=== PATIENT | male | born 1990 | race American Indian/Alaskan Native ===

== ENCOUNTER 2018-10-22 08:01 | Day surgery (SDC) | payer BC ==
[~2018-10-22 08:01] MED LIST: DIPRIVAN 10 MG/ML IV ONE; SUBLIMAZE ONE
[2018-10-22] MEDS ORDERED: SUBLIMAZE IV PRN (08:32)
[2018-10-22] MEDS ORDERED: TORADOL IV PRN (08:32)
[2018-10-22] MEDS ORDERED: DEMEROL IV PRN (08:32)
[2018-10-22] MEDS ORDERED: TYLENOL PO PRN (08:32)
[2018-10-22] MEDS ORDERED: DILAUDID IV PRN (08:32)
[2018-10-22] MEDS ORDERED: ZOFRAN IV PRN (08:32)
[2018-10-22] MEDS ORDERED: LACTATED RINGERS 1,000 ML ONE (08:52)
--- NOTE | 2018-10-22 08:53 | Anesthesia Consultation ---
Anesthesia Consult and Med Hx - Airway Anesthetic Teeth Evaluation: Good ROM Head & Neck: Adequate Mental/Hyoid Distance: Adequate Mallampati Class: Class II Intubation Access Assessment: Good - Pulmonary Exam CTA: Yes - Cardiac Exam Cardiac Exam: RRR - Pre-Operative Health Status ASA Pre-Surgery Classification: ASA2 Proposed Anesthetic Plan: General - Pulmonary Hx Smoking: Yes (STOPPED X 1 YRS ( 1 /2 PPD)) Hx Sleep Apnea: No (FELICIA PRE SCREEN LOW RISK.) - Cardiovascular System Hx Hypertension: No - Other Systems Hx Cancer: No
--- NOTE | 2018-10-22 08:58 | Anesthesia Consultation ---
Anesthesia Consult and Med Hx Date of service: 10/22/18 - Airway Anesthetic Teeth Evaluation: Good ROM Head & Neck: Adequate Mental/Hyoid Distance: Adequate Mallampati Class: Class II Intubation Access Assessment: Good - Pulmonary Exam CTA: Yes - Cardiac Exam Cardiac Exam: RRR - Pre-Operative Health Status ASA Pre-Surgery Classification: ASA3 Proposed Anesthetic Plan: General - Pulmonary Hx Smoking: Yes (STOPPED X 1 YRS ( 1 /2 PPD)) Hx Sleep Apnea: No (FELICIA PRE SCREEN LOW RISK.) - Cardiovascular System Hx Hypertension: No - Other Systems Hx Cancer: No
[2018-10-22] MEDS ORDERED: LACTATED RINGERS 1,000 ML IV SCH (09:00)
--- NOTE | 2018-10-22 09:01 | Anesthesia Day of Surgery ---
Anesthesia Day of Surgery - Day of Surgery Patient Examined: Yes Patient H&P Reviewed: Yes Patient is NPO: Yes Beta Blockers: No Cardiac Clearance: No Pulmonary Clearance: No
[2018-10-22] MEDS: VERSED IV NR ×2 (09:08→09:32)
[2018-10-22] MEDS ORDERED: WATER FOR IRRIG STERILE IR ONE ×2 (10:28→10:29)
[2018-10-22] MEDS ORDERED: ANCEF/STERILE WATER 2 GM/20 ML IV NR (10:30)
[2018-10-22] MEDS ORDERED: DIPRIVAN 10 MG/ML IV ONE (10:55)
[2018-10-22] MEDS ORDERED: ZOFRAN ONE (11:05)
[2018-10-22] MEDS ORDERED: NEO SYNEPHRINE/NS Syringe(OR USE) IV ONE (11:05)
[2018-10-22] MEDS ORDERED: DECADRON ONE (11:05)
[2018-10-22] MEDS ORDERED: XYLOCAINE CARDIAC IV ONE (11:05)
--- NOTE | 2018-10-22 11:25 | Post Operative Note ---
Date of procedure: 10/22/18 Pre-op diagnosis: "prostatitis" Post-op diagnosis: same Findings: normal Procedure: cysto rpgs Anesthesia: GETA Surgeon: WILMER FAUSTIN Estimated blood loss: none Pathology: none Condition: stable Disposition: PACU
--- NOTE | 2018-10-22 11:26 | Discharge Summary ---
Short Stay Discharge Plan Activity: no restrictions, other Weight Bearing Status: Full Weight Bearing Diet: regular Special Instructions: other (inc fluids ) Follow up with: PRIMARY CARE, [Primary Care Provider] - 7 Days WILMER FAUSTIN MD [Staff Physician] - 14 Days
--- NOTE | 2018-10-22 12:33 | Operative Report ---
INDICATIONS: The patient is a 27-year-old gentleman who has been told for quite some time he has urinary and prostate issues. His examination was unremarkable. He has been treated with antibiotics. He had some sort of procedure years ago. 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 He now presents for cystoscopy. He is worried about prostate issues. DESCRIPTION OF PROCEDURE: The patient was brought to the operating room and placed on the operating table. Following induction of anesthesia, placed in lithotomy position, and prepped and draped in usual sterile fashion. Cystourethroscopy showed normal urethra, normal open bladder neck. Prostatic urethra was not long, measured approximately 2.5-3 cm. Bladder was not trabeculated. There were no bladder lesions. Retrograde showed no hydronephrosis, no dilatation, good filling and drainage. The patient tolerated the procedure well. No significant complication. He was brought to recovery in stable condition. JOB# [id number] LACI/KORI
[2018-10-22 12:57] VITALS: BP 105/63
--- NOTE | 2018-10-22 13:19 | Fluoroscopy Report ---
FLUOROSCOPY RETROGRADE UROGRAPHY: HISTORY: Enlarged prostate, urinary retention. FINDINGS: Fluoroscopy was provided by radiology during retrograde urography by the urologist. 5 fluoroscopic images were captured. There is adequate filling of the ureters and intrarenal collecting systems with no filling defects or anatomic abnormalities identified. Please correlate with the procedural report if needed. IMPRESSION: Retrograde pyelograms within normal limits.
--- NOTE | 2018-10-22 18:07 | Post Anesthesia Evaluation ---
- Post Anesthesia Evaluation Patient Participated: Yes Airway Patent: Yes Stable Respiratory Function: Yes Nausea/Vomiting: No Temp > 96.8F: Yes Pain Manageable: Yes Adequeate Hydration: Yes Anesthesia Complications: No
== END 2018-10-22 13:30 | disposition home or self-care (01) ==
LOC: OR 08:01
PROVIDERS: ATTEND Urology
DX: N40.0 Benign prostatic hyperplasia without lower urinary tract symptoms (principal); N41.9 Inflammatory disease of prostate, unspecified; R33.9 Retention of urine, unspecified; Z79.899 Other long term (current) drug therapy; Z88.5 Allergy status to narcotic agent; Z87.891 Personal history of nicotine dependence; K21.9 Gastro-esophageal reflux disease without esophagitis; Z87.440 Personal history of urinary (tract) infections; F32.9 Major depressive disorder, single episode, unspecified; F41.9 Anxiety disorder, unspecified
CPT/HCPCS: 52005; 74420; A4217; C1758; C1769; J0690; J1100; J1885; J2001; J2250; J2370; J2405; J2704; J3010; J7120; Q9967

== ENCOUNTER 2019-09-24 15:41 | Emergency (ER) | payer BC ==
[2019-09-24 16:02] VITALS: BP 156/78
[2019-09-24] MEDS ORDERED: SODIUM CHLORIDE 0.9% 1000 ML 1,000 ML IV ONE (16:36)
--- NOTE | 2019-09-24 16:44 | Emergency Department Report ---
ED Psych HPI - General Chief Complaint: Neuro Symptoms/Deficit Stated Complaint: RT SIDE NUMB/TINGLE CANT MOVE Time Seen by Provider: 09/24/19 16:42 Source: patient Mode of arrival: Ambulatory - History of Present Illness Initial Comments: Patient is a 28-year-old male who comes to the emergency room tachypneic, diaphoretic and extremely anxious. In triage she looked to be in distress. On further exam it appears that the patient has an acute on chronic history of anxiety and panic attacks. Patient states that he had an anxiety attack on Monday and that today he called his doctor who told him that he should be seen in the emergency room. Patient is tachypneic and complaining of numbness of his fingers and toes. He states that his fingers are curling up. P atient has no facial droop no pronator drift on exam. Patient endorses occasional alcohol, daily cigarettes and marijuana use for his anxiety. He last had marijuana this morning. Patient lives with his . Patient denies any daily medications Patient states his last HIV test was last year and negative. Review of the EMR indicates that he at one time he was on antivirals prophylactically but he denies taking them at this time. Patient denies SI or HI. Patient denies auditory or visual hallucinations. Patient has no history of psychosis or schizophrenia. He is and his legal next of kin is his partner who is in the room with him. -: Gradual, days(s) Associated Psychiatric Symptoms: none History of same: Yes Improves With: none Worsens With: none Context: recent drug abuse Associated Symptoms: shortness of breath. denies: confusion, headache, nausea, vomiting, syncope, insomnia Treatments Prior to Arrival: none - Related Data Previous Rx's Medication Instructions Recorded Last Taken Type hydrOXYzine PAMOATE [Vistaril] 25 mg PO Q6HR PRN #10 capsule 09/24/19 Unknown Rx Allergies Allergy/AdvReac Type Severity Reaction Status Date / Time codeine Allergy Itching Verified 10/15/18 11:46 ED Review of Systems ROS: Stated complaint: RT SIDE NUMB/TINGLE CANT MOVE Other details as noted in HPI Comment: All other systems reviewed and negative ED Past Medical Hx - Past Medical History Previous Medical History?: Yes Hx Hypertension: No Hx GERD: Yes (PRN MEDS) Hx Psychiatric Treatment: Yes (ANXIETY) Hx HIV: No Additional medical history: Uriz's Palsy - Surgical History Past Surgical History?: Yes Additional Surgical History: T/A; HPV REMOVAL 2009 - Family History Family history: no significant - Social History Smoking Status: Current Every Day Smoker Substance Use Type: Alcohol, Marijuana (FOR ANXIETY AND NAUSEA; LAST THIS AM) - Medications Home Medications: Home Medications Medication Instructions Recorded Confirmed Last Taken Type hydrOXYzine PAMOATE [Vistaril] 25 mg PO Q6HR PRN #10 capsule 09/24/19 Unknown Rx ED Physical Exam - General Limitations: No Limitations General appearance: alert, anxious, other (DIAPHORETIC) - Head Head exam: Present: atraumatic, normocephalic - Eye Eye exam: Present: normal appearance, PERRL, EOMI - ENT ENT exam: Present: mucous membranes moist - Neck Neck exam: Present: normal inspection - Respiratory Respiratory exam: Present: normal lung sounds bilaterally. Absent: respiratory distress - Cardiovascular Cardiovascular Exam: Present: regular rate, normal rhythm, tachycardia. Absent: systolic murmur, diastolic murmur, rubs, gallop - GI/Abdominal GI/Abdominal exam: Present: soft, normal bowel sounds - Rectal Rectal exam: Present: deferred - Extremities Exam Extremities exam: Present: normal inspection - Back Exam Back exam: Present: normal inspection - Neurological Exam Neurological exam: Present: alert, oriented X3 - Psychiatric Psychiatric exam: Present: anxious - Skin Skin exam: Present: warm, intact, diaphoretic, pallor. Absent: rash ED Course Vital Signs 09/24/19 16:00 Temperature 97.5 F L Pulse Rate 92 H Respiratory 24 Rate Blood Pressure 156/78 O2 Sat by Pulse 100 Oximetry - Reevaluation(s) Reevaluation #1: 09/24/19 18:[address] MORALES WHEN CT READ AND NEG PT TO DC HOME WITH ANCHOR REFERRAL ED Medical Decision Making - Lab Data Result diagrams: 09/24/19 16:24 09/24/19 16:42 - EKG Data -: EKG Interpreted by Me EKG shows normal: sinus rhythm Rate: normal - EKG Data When compared to previous EKG there are: no significant change Interpretation: no acute changes - Radiology Data Radiology results: report reviewed, image reviewed - Medical Decision Making Labs 09/24/19 09/24/19 09/24/19 16:24 16:24 16:24 WBC RBC Hgb Hct MCV MCH MCHC RDW Plt Count Lymph % (Auto) Boyle % (Auto) Eos % (Auto) Baso % (Auto) Lymph # Boyle # Eos # Baso # Seg Neutrophils % Seg Neutrophils # Sodium 140 Potassium 3.5 L Chloride 103.4 Carbon Dioxide 20 L Anion Gap 20 BUN 11 Creatinine 0.8 Estimated GFR > 60 BUN/Creatinine Ratio 14 Glucose 115 H Calcium 9.9 Total Bilirubin AST ALT Alkaline Phosphatase Total Creatine Kinase Total Protein Albumin Albumin/Globulin Ratio Salicylates < 0.3 L Acetaminophen < 5.0 L Plasma/Serum Alcohol 09/24/19 09/24/19 09/24/19 16:24 16:24 16:42 WBC 8.3 RBC 4.90 Hgb 15.6 H Hct 45.4 MCV 93 MCH 32 MCHC 34 RDW 12.4 L Plt Count 287 Lymph % (Auto) 26.7 Boyle % (Auto) 5.1 Eos % (Auto) 0.4 Baso % (Auto) 1.1 Lymph # 2.2 Boyle # 0.4 Eos # 0.0 Baso # 0.1 Seg Neutrophils % 66.7 Seg Neutrophils # 5.5 Sodium 141 Potassium 3.5 L Chloride 103.8 Carbon Dioxide 19 L Anion Gap 22 BUN 11 Creatinine 0.8 Estimated GFR > 60 BUN/Creatinine Ratio 14 Glucose 117 H Calcium 9.8 Total Bilirubin 0.50 AST 16 ALT 20 Alkaline Phosphatase 74 Total Creatine Kinase 75 Total Protein 7.0 Albumin 4.9 Albumin/Globulin Ratio 2.3 Salicylates Acetaminophen Plasma/Serum Alcohol < 0.01 Vital Signs 09/24/19 16:00 Temperature 97.5 F L Pulse Rate 92 H Respiratory 24 Rate Blood Pressure 156/78 O2 Sat by Pulse 100 Oximetry PLAN 1. MEDICALLY CLEAR WITH LABS/UA/CT 2. MHE FOR RESOURCES FOR ANXIETY/PANIC DISORDER 1800 TREATED FOR HYPOKALEMIA WITH PO K LABS NOTED UA AND UDS NOTED CT HEAD READ PENDING TSH NORMAL PLAN 1829 CT - WHEN NEG ---DC HOME WITH RX FOR VISTARIL AND ANCHOR REFERRAL 1829 PT AND FAMILY UPDATED ON PLAN OF CARE PT CALM AT THIS TIME. - Differential Diagnosis PANIC ATTACK/HYPERTHYROID/IC PROCESS Critical care attestation.: If time is entered above; I have spent that time in minutes in the direct care of this critically ill patient, excluding procedure time. ED Disposition Clinical Impression: Panic attack, Hypokalemia Disposition: DC- TO HOME OR SELFCARE Is pt being admited?: No Does the pt Need Aspirin: No Condition: Stable Instructions: Hypokalemia (ED), Cannabis Abuse (ED), Anxiety (ED) Additional Instructions: AVOID ALCOHOL AND DRUGS FOLLOW UP WITH PCP AND ANCHOR- SEE ATTACHED FOR ASSISTANCE WITH ANXIETY USE VISTARIL IF NEEDED FOR ATTACKS LIKE TODAY DIET TOLERATED AVOID CAFFEINE WORK ON LIMITING STRESS Prescriptions: hydrOXYzine PAMOATE [Vistaril] 25 mg PO Q6HR PRN #10 capsule PRN Reason: Anxiety Referrals: HERRERA FAGANTEXARKANA MD [place]ING [Primary Care Provider] - 3-5 Days RASHMI WARE MD [Staff Physician] - 3-5 Days Time of Disposition: 17:56
[2019-09-24 16:52] LABS: Basophils # (Auto) 0.1 K/mm3 (0.0-0.1); Basophils % (Auto) 1.1 % (0.0-1.8); Eosinophils % (Auto) 0.4 % (0.0-4.3); Hematocrit 45.4 % (35.5-45.6); Hemoglobin 15.6 gm/dl (11.8-15.2); Lymphocytes # (Auto) 2.2 K/mm3 (1.2-5.4); Lymphocytes % (Auto) 26.7 % (13.4-35.0); Mean Corpuscular HGB Conc 34 % (32-34); Mean Corpuscular Volume 93 fl (84-94); Monocytes # (Auto) 0.4 K/mm3 (0.0-0.8); Monocytes % (Auto) 5.1 % (0.0-7.3); Platelet Count 287 K/mm3 (140-440); Red Cell Distribution Width 12.4 % (13.2-15.2)
[2019-09-24 17:03] LABS: BUN/Creatinine Ratio 14; Blood Urea Nitrogen 11 mg/dL (9-20); Calcium 9.9 mg/dL (8.4-10.2); Hemolysis Index 15
[2019-09-24] MEDS ORDERED: POTASSIUM CHLORIDE ER 20 MEQ TAB PO ONE (17:04)
[2019-09-24 17:07] LABS: Alanine Aminotransferase 20 units/L (7-56); Albumin 4.9 g/dL (3.9-5); BUN/Creatinine Ratio 14; Blood Urea Nitrogen 11 mg/dL (9-20); Calcium 9.8 mg/dL (8.4-10.2); Hemolysis Index 14
[2019-09-24 18:03] LABS: Bilirubin,Urine NEG (Negative); Blood,Urine NEG (Negative); Color,Urine Yellow (Yellow); Mucus,Urine FEW /HPF; Protein,Urine <15 mg/dL mg/dL (Negative); RBC,Urine < 1.0 /HPF (0.0-6.0); Urobilinogen,Urine < 2.0 mg/dL (<2.0); WBC,Urine < 1.0 /HPF (0.0-6.0)
[2019-09-24 18:05] LABS: Amphetamine Screen,Urine PRESUMPTIVE NEGATIVE; Benzodiazepines Screen,Urine PRESUMPTIVE NEGATIVE; Cocaine Screen,Urine PRESUMPTIVE NEGATIVE; Methadone Screen,Urine PRESUMPTIVE NEGATIVE; Opiate Screen,Urine PRESUMPTIVE NEGATIVE
[2019-09-24] MEDS ORDERED: hydrOXYzine PAMOATE 25 MG CAP PO ONE (18:11)
[2019-09-24 18:19] LABS: Cannabinoid Screen,Urine PRESUMPTIVE POSITIVE
--- NOTE | 2019-09-24 20:32 | Cat Scan Report ---
CT head/brain wo con INDICATION / CLINICAL INFORMATION: 28 years Male; AMS. TECHNIQUE: Routine CT head without contrast. All CT scans at this location are performed using CT dos e reduction for ALARA by means of automated exposure control. COMPARISON: None. FINDINGS: BRAIN / INTRACRANIAL CONTENTS: No acute hemorrhage, mass effect, midline shift, hydrocephalus, or acu te, large territorial infarct. No chronic infarct or atrophy appreciated. No significant white matter abnormality. CRANIOCERVICAL JUNCTION: No significant abnormality. ORBITS: No significant abnormality of visualized orbits. SINUSES / MASTOIDS: Mucous retention cyst/polyp seen in the right maxillary antrum. Partial opacifica tion of the mastoid seen on the right with small air-fluid level. ADDITIONAL FINDINGS: None. IMPRESSION: 1. No focal mass, hemorrhage, hydrocephalus, or acute, large territorial infarct. Signer Name: Arnie Whalen MD, III Signed: 09/24/2019 8:28 PM Workstation Name: [id number]
== END 2019-09-24 20:50 | disposition home or self-care (01) ==
LOC: ED 15:41
DX: F41.0 Panic disorder [episodic paroxysmal anxiety] (principal); E87.6 Hypokalemia; K21.9 Gastro-esophageal reflux disease without esophagitis; F41.9 Anxiety disorder, unspecified; F17.200 Nicotine dependence, unspecified, uncomplicated; F12.10 Cannabis abuse, uncomplicated; Z98.890 Other specified postprocedural states; Z79.899 Other long term (current) drug therapy; Z88.5 Allergy status to narcotic agent
CPT/HCPCS: 36415; 70450; 80048; 80053; 80307; 81001; 82550; 84443; 85025; 93005; 93010; 99284; J7030; 80320; G0480